=== PATIENT | female | born 1960 | race Caucasian/White ===

== ENCOUNTER → 2018-09-30 14:29 | Outpatient (CLI) | payer MEDICARE | END | disposition home or self-care (01) | LOC: D.CT 09-25 14:30 | DX: R47.9 Unspecified speech disturbances (principal) ==

== ENCOUNTER 2020-03-25 18:23 | Emergency (ER) | payer MEDICARE ==
[~2020-03-25] VITALS: Ht 167.6 cm; Wt 102.3 kg
[2020-03-25 18:27] VITALS: Ht 167.6 cm; Wt 102.3 kg
[2020-03-25 18:53] LABS: BASOPHILS 0.4 % (0-2); EOSINOPHILS 1.6 % (0-7); HEMATOCRIT 38.8 % (36.0-48.0); IMMATURE GRANULOCYTES 0.4 % (0-5); MCH 28.2 pg (26.0-34.0); MCHC 33.5 g/dL (31.0-37.0); MCV 84.2 fL (80.0-100.0); MONOCYTES 7.5 % (2-11); NEUTROPHILS 66.1 % (40-80); PLATELET COUNT 250 10x3/uL (130-400); RBC 4.61 10x6/uL (4.00-5.40); RDW 13.7 % (11.5-14.5); WBC 5.1 10x3/uL (4.8-10.8)
[2020-03-25 19:06] LABS: APTT 34.1 SECONDS (22.8-39.4); CALC OSMOLALITY 282 mosm/kg (275-300); CALCIUM 9.8 mg/dL (8.5-10.1); CARBON DIOXIDE 25.2 mmol/L (21.0-32.0); CHLORIDE - SERUM 104 mmol/L (98-107); CREATININE - SERUM 0.9 mg/dL (0.6-1.3); GLUCOSE 152 mg/dL (74-106); INR 1.74 (0.85-1.17); POTASSIUM - SERUM 3.7 mmol/L (3.5-5.1); PROTIME 20.1 SECONDS (11.6-15.0); SODIUM 141 mmol/L (136-145); UREA NITROGEN 10 mg/dL (7-18); eGFR NON AFRICAN AMERICAN 68 mL/min (90-120)
[2020-03-25 19:21] LABS: ALBUMIN 3.9 g/dL (3.4-5.0); ALKALINE PHOSPHATASE 90 U/L (30-120); ALT (SGPT) 18 U/L (10-68); BILIRUBIN - TOTAL 0.45 mg/dL (0.2-1.3); CKMB 2.3 U/L (0.0-3.6); CREATINE KINASE 145 UL (21-215); MAGNESIUM - SERUM 2.4 mg/dL (1.8-2.4)
[2020-03-25 19:28] LABS: TROPONIN-I < 0.017 ng/mL (0.000-0.060)
[2020-03-25 21:16] VITALS: BP 128/80
== END 2020-03-25 21:16 | disposition home or self-care (01) ==
LOC: D.ER 18:23
PROVIDERS: Family Medicine
DX: R07.89 Other chest pain (principal); Z79.01 Long term (current) use of anticoagulants; Z86.718 Personal history of other venous thrombosis and embolism; G20 Parkinson's disease; E11.9 Type 2 diabetes mellitus without complications

== ENCOUNTER 2021-01-12 00:03 | Emergency (ER) | payer MEDICARE ==
[~2021-01-12] VITALS: Ht 167.6 cm; Wt 104.5 kg
[~2021-01-12 00:03] MED LIST: CARBIDOPA-LEVO1 EAC2 PO; CRESTOR5 MG PO; GLUCOPHAGE500 MG PO; HYDROCHLOROTHIA25 MG PO; HYDROCODON-ACE1 EA10 PO; PROZAC40 MG PO; STALEVO 200 TAB1 TAB PO; VERELAN120 MG PO
[2021-01-12 00:20] VITALS: Ht 167.6 cm; Wt 104.5 kg
[2021-01-12 00:40] LABS: BASOPHILS 0.3 % (0-2); EOSINOPHILS 0.8 % (0-7); HEMATOCRIT 39.1 % (36.0-48.0); HEMOGLOBIN 13.1 g/dL (12-16); IMMATURE GRANULOCYTES 0.2 % (0-5); LYMPHOCYTES 32.8 % (15-50); MCH 28.1 pg (26.0-34.0); MCHC 33.5 g/dL (31.0-37.0); MCV 83.7 fL (80.0-100.0); MONOCYTES 7.4 % (2-11); NEUTROPHIL ABS# 3.56 10x3/uL (1.56-6.13); NEUTROPHILS 58.5 % (40-80); PLATELET COUNT 205 10x3/uL (130-400); RBC 4.67 10x6/uL (4.00-5.40); RDW 14.7 % (11.5-14.5); WBC 6.1 10x3/uL (4.8-10.8)
[2021-01-12 00:51] LABS: CALC OSMOLALITY 277 mosm/kg (275-300); CALCIUM 9.2 mg/dL (8.5-10.1); CARBON DIOXIDE 30.3 mmol/L (21.0-32.0); CHLORIDE - SERUM 99 mmol/L (98-107); GLUCOSE 164 mg/dL (74-106); POTASSIUM - SERUM 3.3 mmol/L (3.5-5.1); SODIUM 136 mmol/L (136-145); UREA NITROGEN 17 mg/dL (7-18); eGFR NON AFRICAN AMERICAN 60 mL/min (90-120)
[2021-01-12 00:56] LABS: APTT 31.9 SECONDS (22.8-39.4); INR 2.01 (0.85-1.17); PROTIME 21.2 SECONDS (11.6-15.0)
[2021-01-12 00:57] LABS: D-DIMER-QUANTITATIVE < 0.27 ug/mLFEU (0.20-0.54)
[2021-01-12 01:04] LABS: ALKALINE PHOSPHATASE 66 U/L (30-120); ALT (SGPT) 8 U/L (10-68); BILIRUBIN - TOTAL 0.41 mg/dL (0.2-1.3); C-REACTIVE PROTEIN 0.2 mg/dL (0.0-0.9); PRO BNP 37 pg/mL (0-125); PROTEIN - SERUM 7.5 g/dL (6.4-8.2); TROPONIN-I < 0.017 ng/mL (0.000-0.060)
[2021-01-12 01:36] VITALS: BP 121/79
== END 2021-01-12 01:36 | disposition home or self-care (01) ==
LOC: D.ER 00:03
PROVIDERS: Family Medicine
DX: G20 Parkinson's disease (principal); R07.89 Other chest pain; E11.9 Type 2 diabetes mellitus without complications; I10 Essential (primary) hypertension; Z79.84 Long term (current) use of oral hypoglycemic drugs